=== PATIENT | male | born 1965 | race Caucasian/White ===

== ENCOUNTER → 2019-11-08 17:47 | Outpatient (CLI) | payer OTHER, SELFPAY ==
--- NOTE | ~2019-11-08 | MR_ITS ---
EXAMINATION: MR cervical spine wo con DATE: 11/08/2019 18:47 INDICATION: Neck pain. TECHNIQUE: Magnetic resonance imaging (MRI) of the cervical spine was performed without intravenous c ontrast. Sequences included sagittal T2-weighted FSE, sagittal STIR FSE, sagittal T1-weighted FSE, ax ial MERGE, and axial T2-weighted FSE. COMPARISON: Cervical spine radiographs 11/02/2019 FINDINGS: There is mild kyphosis of cervical spine. Vertebral body heights are normal. There are escalera ges of anterior fusion procedure at C6-C7 with healed interbody bone graft and anterior plate and scr ews. There is mildly decreased disc height at C4-C5 and C5-C6. The spinal cord signal intensity is no rmal. There is a 2.3 cm nodule in right thyroid lobe. The following disc levels are specifically disc ussed: C2-C3: The disc does not extend beyond the endplate margin. There is no uncovertebral joint osteoarth ritis. There is mild left facet joint osteoarthritis. There is no neural foraminal stenosis. There is no central canal stenosis. C3-C4: There is a central protrusion. There is no uncovertebral joint osteoarthritis. There is mild b ilateral facet joint osteoarthritis. There is no neural foraminal stenosis. There is no central canal stenosis. C4-C5: The disc does not extend beyond the endplate margin. There is mild left uncovertebral joint os teoarthritis. There is no facet joint osteoarthritis. There is mild left neural foraminal stenosis. T here is no central canal stenosis. C5-C6: The disc is bulging. There is mild bilateral uncovertebral joint osteoarthritis. There is no f acet joint osteoarthritis. There is mild right neural foraminal stenosis. There is mild central canal stenosis. C6-C7: There is no uncovertebral joint hypertrophy. There is no facet joint osteoarthritis. There is no neural foraminal stenosis. There is no central canal stenosis. C7-T1: There is a right central extrusion. There is no uncovertebral joint osteoarthritis. There is m ild bilateral facet joint osteoarthritis. There is no neural foraminal stenosis. There is mild centra l canal stenosis. IMPRESSION: 1. Mild cervical spondylosis. 2. Anterior fusion procedure at C6-C7. 3. Right thyroid nodule. Thyroid ultrasound is recommended for risk stratification. Reviewed, dictated and finalized at location A. [employer] FO[employer] SERVER IMPRESSION: 1. Mild cervical spondylosis. 2. Anterior fusion procedure at C6-C7. 3. Right thyroid nodule. Thyroid ultrasound is recommended for risk stratificat ion.
== END ==
PROVIDERS: Visit Provider Nurse Practitioner Adult Health
DX: M43.22 Fusion of spine, cervical region (principal); M47.22 Other spondylosis with radiculopathy, cervical region; E04.1 Nontoxic single thyroid nodule
CPT/HCPCS: 72141

== ENCOUNTER → 2019-11-16 13:43 | Outpatient (CLI) | payer OTHER, SELFPAY ==
--- NOTE | ~2019-11-16 | US_ITS ---
EXAMINATION: US thyroid DATE: 11/16/2019 14:06 INDICATION: Abnormal cervical spine MR with thyroid nodules. TECHNIQUE: Multiple ultrasound images of the thyroid were obtained. COMPARISON: None. FINDINGS: The right thyroid lobe measures 6.0 x 2.4 x 2.1 cm. The left thyroid lobe measures 5.3 x 1.9 x 2.0 c m. Multiple bilateral thyroid nodules without echogenic foci. The largest is a well-defined wider th an tall solid isoechoic nodule (TI-RADS 3, mildly suspicious , FNA if >=2.5 cm, annual followup is > 1.5 cm) in the mid right thyroid which measures 3.1 x 1.5 x 2.4. There is an additional 3 well-define d wider than tall solid hypoechoic nodules (TI-RADS 4, moderately suspicious , FNA if >=1.5 cm, annua l followup is >1 cm) in the left thyroid measuring up to 1.2, 1.1 and 1.0 cm in maximal diameters. Mi xed cystic and solid hypoechoic well-defined wider than tall nodule in the right thyroid measuring 1. 9-1.8 x 1.0 (TI-RADS 3) in the deep mid right thyroid. Finally there is a predominantly cystic 1.3 x 0.9 0.9 cm nodules in the inferior right thyroid. IMPRESSION: 1. Multinodular goiter. Recommend ultrasound-guided biopsy of the 3.1 cm Ti-RADS 3 nodule in the righ t thyroid lobe. Reviewed, dictated and finalized at location A. MATED MANUFACTURING INSTRUCTOR IMPRESSION: 1. Multinodular goiter. Recommend ultrasound-guided biopsy of the 3.1 cm Ti-RAD S 3 nodule in the right thyroid lobe.
== END ==
PROVIDERS: Visit Provider Family Medicine
DX: R93.89 Abnormal findings on diagnostic imaging of other specified body structures (principal); E04.2 Nontoxic multinodular goiter
CPT/HCPCS: 76536

== ENCOUNTER → 2020-09-09 07:57 | Outpatient (CLI) | payer OTHER, SELFPAY ==
--- NOTE | ~2020-09-09 | MR_ITS ---
EXAMINATION: MR lumbar spine wo con DATE: 09/09/2020 08:51 INDICATION: Low back pain. TECHNIQUE: Magnetic resonance imaging (MRI) of the lumbar spine was performed without intravenous con trast. Sequences included sagittal T2-weighted FSE, sagittal T2-weighted FS FSE, sagittal T1-weighted FSE, and axial T2-weighted FSE. COMPARISON: None FINDINGS: Bone alignment is normal. There is a compression fracture of T11 with 2/5 loss of height, v isible fracture lines, and superior endplate bone marrow edema. There is a compression fracture of T1 2 with less than 1/5 loss of height and superior endplate bone marrow edema. There is moderately decr eased disc height at T10-T11 and mildly decreased disc height at T11-T12. The distal spinal cord sign al intensity is normal. The conus medullaris is at L1-L2. The following disc levels are specifically discussed: L1-L2: The disc does not extend beyond the endplate margin. There is mild bilateral facet joint osteo arthritis. There is no neural foraminal stenosis. There is no central canal stenosis. L2-L3: The disc is bulging. There is mild bilateral facet joint osteoarthritis. There is mild bilater al neural foraminal stenosis. There is mild central canal stenosis. L3-L4: The disc is bulging. There is moderate right and severe left facet joint osteoarthritis. There is mild bilateral neural foraminal stenosis. There is mild central canal stenosis. L4-L5: The disc is bulging. There is severe bilateral facet joint osteoarthritis. There is mild bilat eral neural foraminal stenosis. There is mild central canal stenosis. L5-S1: The disc does not extend beyond the endplate margin. There is severe bilateral facet joint ost eoarthritis. There is mild left neural foraminal stenosis. There is no central canal stenosis. IMPRESSION: 1. Compression fracture of T11, likely acute or subacute. 2. Compression fracture of T12, likely subacute or chronic. 3. Mild lumbar spondylosis. Reviewed, dictated and finalized at location A. OGRAPH MECHANIC
== END ==
DX: S22.089A Unspecified fracture of T11-T12 vertebra, initial encounter for closed fracture (principal); M47.817 Spondylosis without myelopathy or radiculopathy, lumbosacral region; M48.07 Spinal stenosis, lumbosacral region
CPT/HCPCS: 72148